=== PATIENT | female | born 1970 | race Caucasian/White ===

== ENCOUNTER 2017-08-24 07:10 | Emergency (ER) | payer BC ==
[2017-08-24] MEDS ORDERED: DIPHTH,PERTUSS(ACELL),TET VAC 0.5 ML VIAL IM ONE ×2 (08:12→08:20)
--- NOTE | 2017-08-24 08:38 | ERNOTE ---
Medical Problem HPI - General Chief Complaint: Laceration Time Seen by Provider: 08/24/17 08:05 Source: patient Exam Limitations: no limitations - Immun/Allergies/Home Medications Immunizations: IMMUNIZATION HX Immunizations Up to Date No History of Influenza Vaccine No Hx Pneumococcal Vaccination No Allergies/Adverse Reactions: Allergies No Known Allergies Allergy (Verified 08/24/17 07:18) Home Medications: HOME MEDICATIONS NK [No Home Medication] 08/24/17 [Last Taken Unknown] - History of Present History Narrative: This morning patient tripped on her porch in the dark, fell and hit her chin on the rail (sustaining a laceration) and her right hand on the cement. She did not loose consciousness, was able to get up, is mainly concerned about the laceration on her chin Date (Duration): 08/24/17 Time (Timing): 06:30 Review of Systems - Review of Systems Constitutional: Absent: recent illness, fever EYE: Absent: vision changes ENT: Absent: sore throat Respiratory: Absent: shortness of breath, cough Cardiology: Absent: chest pain Gastrointestinal/Abdominal: Absent: nausea, abdominal pain Genitourinary: Present: no symptoms reported Musculoskeletal: Present: See HPI Skin: Present: See HPI Neurological: Absent: headache, weakness, numbness - Patient's Past Medical History Patient History - Medical: Anxiety, Depression, GERD, Other Patient History - Cardiac/Respiratory: No pertinent hx Patient History - Cancer: No Hx of Cancer Patient History - Surgical Procedures: D & C, T & A, Other Patient History - Other: None LMP (females 10-50): last week - Social History Living Situations: home Abuse History: No History of abuse Psych History: Hx of Anxiety, Hx of Depression, Current tx/ever been on anti- depressants or anti-anxiety meds Smoking Status: Never smoker Alcohol Use: none Drug Use: none - Immunizations Immunizations Up to Date: No Hx Pneumococcal Vaccination: No History of Influenza Vaccine: No Physical Exam - Physical Exam General Appearance: Present: wd/wn, alert, no apparent distress Head Exam: Present: no evidence of injury - except chin, no tenderness w palpation, lacerations - below chin (1cm) Eye Exam: Normal inspection: bilateral, PERRL: bilateral Ears, Nose, Throat: Present: normal ENT inspection, normal pharynx Neck: Present: normal inspection, nontender, supple, full range of motion. Absent: tender posterior midline Respiratory: Present: no respiratory distress, normal breath sounds, no accessory muscle use, lungs clear Cardiovascular/Chest: Present: regular rate, rhythm, no murmur Extremity Exam: Present: normal except - - superficial abrasion on dorsum of right hand, contusion on right knuckle, no other bony tenderness, able to make fist Neurological Exam: Present: alert, oriented, normal mood/affect, no motor/ sensory deficits Skin Exam: Present: normal color, warm/dry ED Progress - Vital Signs Patient's Vital Signs:: I have reviewed the patient's vital signs. Vital Signs: Vital Signs 08/24/17 07:13 Temperature 36.7 C Pulse Rate 104 H Respiratory 16 Rate Blood Pressure 121/92 O2 Sat by Pulse 100 Oximetry - Progress/Reassessment Chief Complaint: Laceration Progress Note-Subjective: 08/24/17 08:10 offered xray of right had, patient declined Procedures Face Anesthesia: 2% Lidocaine, Local Length of Repair/Wound (cm): 1 Wound's Depth/Shape: into subcutaneous, linear Wound Explored: clean, no foreign body Wound Intervention: irrigated w/saline Distal NVT: neuro/vasc intact Suture Size/Type: 5-0, prolene Number of Sutures: 3 Layer Closure: Simple Wound Dressing: sterile dressing applied Complications: Pt ky procedure well Departure Clinical Impression: Facial laceration Qualifiers: Encounter type: initial encounter Qualified Code(s): S01.81XA - Laceration without foreign body of other part of head, initial encounter Contusion of right hand Qualifiers: Encounter type: initial encounter Qualified Code(s): S60.221A - Contusion of right hand, initial encounter - Departure Disposition: Home self-care Condition: Good Instructions: Contusion, [id number], Laceration Care, Adult, [id number] Additional Instructions: take ibuprofen (200mg) three tablets every six hours as needed for pain have the sutures removed in 5days Referrals: Rosa Maria Dutton MD [Primary Care Provider] -
[2017-08-24 08:49] VITALS: BP 147/76
== END 2017-08-24 08:50 | disposition home or self-care (01) ==
LOC: ER 07:10
PROC: 0JQ10ZZ Repair Face Subcutaneous Tissue and Fascia, Open Approach (ICD-10-PCS; principal; 2017-08-24)
DX: S01.81XA Laceration without foreign body of other part of head, initial encounter (principal); S60.221A Contusion of right hand, initial encounter; W01.198A Fall on same level from slipping, tripping and stumbling with subsequent striking against other object, initial encounter; Y92.007 Garden or yard of unspecified non-institutional (private) residence as the place of occurrence of the external cause; Z23 Encounter for immunization